=== PATIENT | female | born 1995 | race African-American/Black ===

== ENCOUNTER 2020-03-13 17:50 | Emergency (ER) | payer BC ==
[2020-03-13 17:58] VITALS: RESP 18
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
--- NOTE | 2020-03-13 18:31 | XR ---
EXAMINATION TYPE: XR chest 1V portable DATE OF EXAM: 03/13/2020 COMPARISON: 04/28/2014 HISTORY: Cough TECHNIQUE: FINDINGS: Heart and mediastinum are normal. Lungs are clear. Diaphragm is normal. Bony thorax appears normal. IMPRESSION: Normal chest. No change.
[2020-03-13 19:03] VITALS: BP 102/65; PULSE 79; TEMP 98.9
== END 2020-03-13 19:03 | disposition home or self-care (01) ==
LOC: EC 17:50
DX: U07.1 COVID-19 (principal); Z91.018 Allergy to other foods; Z88.8 Allergy status to other drugs, medicaments and biological substances; Z88.1 Allergy status to other antibiotic agents; Z88.0 Allergy status to penicillin; Z91.048 Other nonmedicinal substance allergy status
CPT/HCPCS: 71045; 99284